=== PATIENT | male | born 2000 | race Asian ===

== ENCOUNTER 2022-03-07 14:03 | Emergency (ER) | payer OTHER ==
[~2022-03-07] VITALS: Ht 177.8 cm; Wt 90.9 kg
[2022-03-07] MEDS ORDERED: FLUORESCEIN OPHTH 1 MG STRIP OU ONE (16:25)
[2022-03-07] MEDS ORDERED: PROPARACAINE 0.5% OPHTH SOL 15ML OU ONE (16:25)
[2022-03-07] MEDS ORDERED: CIPROFLOXACIN 0.3% OPHTH SOLN 2.5ML OD ONE (17:20)
[2022-03-07] MEDS ORDERED: CIPR0.3S6 OD (17:21)
[2022-03-07 17:44] VITALS: BP 147/81
== END 2022-03-07 18:08 | disposition home or self-care (01) ==
LOC: M ED 14:03
DX: S05.01XA Injury of conjunctiva and corneal abrasion without foreign body, right eye, initial encounter (principal); X58.XXXA Exposure to other specified factors, initial encounter; Y92.89 Other specified places as the place of occurrence of the external cause